=== PATIENT | female | born 1940 | race Caucasian/White ===

== ENCOUNTER 2017-04-10 11:32 | Outpatient (CLI) | payer MEDICARE, OTHER ==
--- NOTE | 2017-04-10 11:54 | RAD ---
2 VIEW CHEST: Date: 04/10/17 COMPARISON: 07/08/14. FINDINGS: Cardiac silhouette is stable. No new consolidation or effusion. No discrete pneumothorax. Osseous deg enerative changes and thoracic kyphosis are present. IMPRESSION: Stable chest. POS: [facility]
== END 2017-04-10 11:33 | disposition home or self-care (01) ==
LOC: MADRAD 11:32
PROVIDERS: ATTEND Family Medicine
DX: J02.9 Acute pharyngitis, unspecified (principal)
CPT/HCPCS: 71020

== ENCOUNTER 2018-02-10 10:47 | Emergency (ER) | payer MEDICARE, OTHER | END 2018-02-10 12:20 | disposition home or self-care (01) | LOC: MADERS 10:47 | DX: J06.9 Acute upper respiratory infection, unspecified (principal); E78.5 Hyperlipidemia, unspecified; I10 Essential (primary) hypertension; Z79.899 Other long term (current) drug therapy | CPT/HCPCS: 99283 ==

== ENCOUNTER 2021-09-26 08:39 | Emergency (ER) | payer MEDICARE, OTHER | END 2021-09-26 10:30 | disposition home or self-care (01) | LOC: MADERS 08:39 | DX: I10 Essential (primary) hypertension (principal); R29.700 NIHSS score 0; I49.3 Ventricular premature depolarization; E78.00 Pure hypercholesterolemia, unspecified; J42 Unspecified chronic bronchitis; Z79.899 Other long term (current) drug therapy | CPT/HCPCS: 93005 ==

== ENCOUNTER 2023-06-07 07:22 | Emergency (ER) | payer OTHER | END 2023-06-07 08:40 | disposition home or self-care (01) | LOC: MADERS 07:22 | DX: M77.30 Calcaneal spur, unspecified foot (principal); M72.2 Plantar fascial fibromatosis; E78.00 Pure hypercholesterolemia, unspecified; I10 Essential (primary) hypertension; Z79.899 Other long term (current) drug therapy ==

== ENCOUNTER 2023-12-21 08:15 | Emergency (ER) | payer MEDICARE, OTHER | END 2023-12-21 09:00 | disposition home or self-care (01) | LOC: MADERS 08:15 | DX: S20.211A Contusion of right front wall of thorax, initial encounter (principal); I10 Essential (primary) hypertension; E78.00 Pure hypercholesterolemia, unspecified; Z79.899 Other long term (current) drug therapy; W22.8XXA Striking against or struck by other objects, initial encounter | CPT/HCPCS: 71045 ==